=== PATIENT | female | born 1995 | race Caucasian/White ===

== ENCOUNTER 2018-08-22 05:31 | Emergency (ER) | payer MEDICAID ==
[2018-08-22 05:37] VITALS: BP 127/67
--- NOTE | 2018-08-22 05:43 | EDPHY ---
H & P Stated Complaint: poss UTI with lower abd pain Time Seen by Provider: 08/22/18 05:41 HPI/ROS: HPI CHIEF COMPLAINT: Urinary frequency, dysuria HISTORY OF PRESENT ILLNESS: 23-year-old female, otherwise healthy denies significant medical history but does have remote history of urinary tract infection. She presents emergency room with urinary frequency and dysuria that started last night. Denies any low back pain, denies fever, denies vomiting. States she has urinary frequency and dysuria. No fever. Past Medical History: UTI Past Surgical History: Denies recent surgery Social History: Socially she states she smokes tobacco, marijuana, alcohol. Family History: Noncontributory ROS REVIEW OF SYSTEMS: 10 Systems were reviewed and negative with the exception of the elements mentioned in the history of present illness. Exam Constitutional nontoxic, triage nursing summary reviewed, vital signs reviewed , awake/alert. Eyes normal conjunctivae and sclera, EOMI, PERRLA. HENT normal inspection, atraumatic, moist mucus membranes, no epistaxis, neck supple/ no meningismus, no raccoon eyes. Respiratory clear to auscultation bilaterally, normal breath sounds, no respiratory distress, no wheezing. Cardiovascular rate normal, regular rhythm, no murmur, no edema, distal pulses normal. Gastrointestinal soft, non-tender, no rebound, no guarding, normal bowel sounds, no distension, no pulsatile mass. Genitourinary no CVA tenderness. Musculoskeletal no midline vertebral tenderness, full range of motion, no calf swelling, no tenderness of extremities, no meningismus, good pulses, neurovascularly intact. Skin pink, warm, & dry, no rash, skin atraumatic. Neurologic awake, alert and oriented x 3, AAOx3, moves all 4 extremities equally, motor intact, sensory intact, CN II-XII intact, normal cerebellar, normal vision, normal speech. Psychiatric normal mood/affect. Heme/Lymph/Immune no lymphadenopathy. Differential Diagnosis: Includes but is not limited to in a particular order UTI, cystitis, pyelonephritis Medical Decision Making: Plan for this patient check UA, urine and re -evaluate. Re-evaluation: Negative urine Urinalysis reveals UTI leukocyte esterase positive. Urine culture be sent. Patient here in emergency room appears well nontoxic no acute distress . Recommend she drinks lots of fluids. Antibiotics as prescribed. Return emergency room if worsening abdominal pain, fever, back pain, vomiting she understands Source: Patient - Personal History LMP (Females 10-55): Over 28 Days Ago Current Tetanus/Diphtheria Vaccine: Yes Current Tetanus Diphtheria and Acellular Pertussis (TDAP): Yes - Medical/Surgical History Hx Asthma: No Hx Chronic Respiratory Disease: No Hx Diabetes: No Hx Cardiac Disease: No Hx Renal Disease: No Hx Cirrhosis: No Hx Alcoholism: No Hx HIV/AIDS: No Hx Splenectomy or Spleen Trauma: No Other PMH: denies - Social History Smoking Status: Current some day smoker Constitutional: Initial Vital Signs Temperature (C) 36.6 C 08/22/18 05:34 Heart Rate 101 H 08/22/18 05:34 Respiratory Rate 16 08/22/18 05:34 Blood Pressure 127/67 H 08/22/18 05:34 O2 Sat (%) 100 08/22/18 05:34 O2 Delivery Mode Room Air Allergies/Adverse Reactions: No Known Allergies Allergy (Unverified 08/22/18 05:36) Home Medications: Medication Instructions Recorded Cephalexin [Keflex] 500 mg PO Q6H #28 cap 08/22/18 Phenazopyridine HCl [Pyridium] 200 mg PO TID #15 tab 08/22/18 Medical Decision Making - Data Points Laboratory Results: 08/22/18 05:45 Urine Color YELLOW Urine Appearance HAZY Urine pH 8.0 H (5.0-7.5) Ur Specific [place] 1.011 (1.002-1.030) Urine Protein 1+ H (NEGATIVE) Urine Ketones NEGATIVE (NEGATIVE) Urine Blood NEGATIVE (NEGATIVE) Urine Nitrate NEGATIVE (NEGATIVE) Urine Bilirubin NEGATIVE (NEGATIVE) Urine Urobilinogen NEGATIVE EU EU (0.2-1.0) Ur Leukocyte Esterase 3+ H (NEGATIVE) Urine RBC Pending Urine WBC Pending Ur Epithelial Cells Pending Urine Glucose NEGATIVE (NEGATIVE) Point of Care Test Results: Urine Collection Date 08/22/18 Collection Time 05:45 HCG Results Negative Departure - Departure Disposition: Home, Routine, Self-Care Clinical Impression: Urinary tract infection Condition: Good Instructions: Urinary Tract Infection in Women (ED) Additional Instructions: 1. Drink lots of fluids stay well-hydrated 2. Antibiotics as prescribed. Referrals: NONE *PRIMARY CARE P,. [Primary Care Provider] - As per Instructions Prescriptions: Cephalexin [Keflex] 500 mg PO Q6H #28 cap Phenazopyridine HCl [Pyridium] 200 mg PO TID #15 tab
[2018-08-22] MEDS ORDERED: CEPHALEXIN 500 MG CAP PO ONE (05:58)
[2018-08-22] MEDS ORDERED: CEPHALEXIN 500MG PREPACK#4 BTL TAKEHOME ONE (05:58)
[2018-08-22] MEDS ORDERED: PHENAZOPYRIDINE HCL 200 MG TAB PO ONE (05:58)
== END 2018-08-22 06:12 | disposition home or self-care (01) ==
DX: N39.0 Urinary tract infection, site not specified (principal)